=== PATIENT | male | born 1995 | race Two or more races ===

== ENCOUNTER 2017-06-17 01:02 | Emergency (ER) | payer SELFPAY ==
[2017-06-17 01:08] VITALS: BMI 25.8
[2017-06-17 01:11] VITALS: BP 128/57; PULSE 90; RESP 16; TEMP 97.5; O2SAT 98
--- NOTE | 2017-06-17 01:22 | ED PDOC ---
HPI: Psych/Substance Abuse Chief Complaint (Nursing): Alcohol Ingestion Chief Complaint (Provider): Patient fell asleep in parking garage, lying on the ground picked up by EMS ED Caveat: Altered Mental Status History Per: EMS History/Exam Limitations: intoxication Onset/Duration Of Symptoms: Hrs Current Symptoms Are (Timing): Still Present Suicide/Self Injury Attempted (Context): None Modifying Factor(s): Alcohol Severity: Mild Pain Scale Rating Of: 5 Associated Symptoms: denies: Anger, Anxiety, Agitation, Depression, Paranoia, Suicidal Thoughts, Suicidal Plan Involuntary Hold By: None Additional History Per: Patient, EMS, Friend Additional Complaint(s): 22 y/o mildly intoxicated male, brought in by EMS. Patient fell asleep in parking garage, lying on the ground picked up by EMS and brought to [facility] ER. Patient oriented x 3, slurred speech but able to answer questions somewhat coherently. Able to walk without assistance. Admits to drinking alcohol but no ingestion of drugs. Denies suicidal or homicidal ideations. Denies trauma, LOC. Past Medical History Vital Signs: Last Vital Signs Temp 97.5 F L 06/17/17 01:09 Pulse 90 06/17/17 01:09 Resp 16 06/17/17 01:09 BP 128/57 L 06/17/17 01:09 Pulse Ox 98 06/17/17 01:09 - Family History Family History: States: Unknown Family Hx - Allergies Allergies/Adverse Reactions: Allergies Allergy/AdvReac Type Severity Reaction Status Date / Time No Known Allergies Allergy Verified 06/17/17 01:08 Review of Systems ROS Statement: Except As Marked, All Systems Reviewed And Found Negative Physical Exam - Physical Exam Appears: Positive for: Non-toxic, No Acute Distress Head Exam: Positive for: ATRAUMATIC Skin: Positive for: Warm, Dry Eye Exam: Positive for: EOMI ENT: Positive for: Normal ENT Inspection Cardiovascular/Chest: Positive for: Regular Rate, Rhythm Respiratory: Positive for: Normal Breath Sounds Gastrointestinal/Abdominal: Positive for: Soft. Negative for: Tenderness, Guarding Neurologic/Psych: Positive for: Other (intoxicated but situationally aware) - ECG O2 Sat by Pulse Oximetry: 98 - Progress ED Course And Treament: ETOH abuse IVF serum ETOH level UDS Disposition - Clinical Impression Clinical Impression: Alcohol ingestion - Patient ED Disposition Is Patient to be Admitted: No - Disposition Disposition: Routine/Home Disposition Time: 01:50 Condition: GOOD Forms: [facility] ([place]) Print Language: ROMANIAN
[2017-06-17] MEDS ORDERED: Sodium Chloride 0.9% 1,000 ML IV SCH (01:30)
== END 2017-06-17 01:53 | disposition home or self-care (01) ==
LOC: H.ER 01:02
DX: F10.10 Alcohol abuse, uncomplicated (principal)